=== PATIENT | male | born 1980 | race Caucasian/White ===

== ENCOUNTER → 2022-06-30 10:24 | Outpatient (CLI) | payer OTHER, SELFPAY ==
--- NOTE | ~2022-06-30 | US_ITS ---
EXAMINATION: US soft tissue LE DATE: 06/30/2022 11:00 INDICATION: Localized swelling, mass and lump, left lower limb . TECHNIQUE: Grayscale and Doppler ultrasound images of the were obtained. COMPARISON: None. FINDINGS: There are the posterior left knee was interrogated sonographically, revealing an ovoid 2 x 0.4 x 1.4 cm subcutaneous masslike area with similar echogenicity to subcutaneous fat, and no detecta ble vascularity. IMPRESSION: Subcutaneous fat echogenicity mass in the area of clinical concern, may represent a lipoma or normal fascicle of fat. Recommend continued clinical follow-up, with additional evaluation if there is rapid growth or associated pain. Reviewed, dictated and finalized at location [facility] IMPRESSION: Subcutaneous fat echogenicity mass in the area of clinical concern, may represe nt a lipoma or normal fascicle of fat. Recommend continued clinical follow-up, with additional evaluation if there is rapid growth or associated pain.
== END ==
PROVIDERS: PCP Family Medicine; Visit Provider Surgery
DX: R22.42 Localized swelling, mass and lump, left lower limb (principal)
CPT/HCPCS: 76882

== ENCOUNTER 2022-07-15 01:00 | Day surgery (SDC) | payer OTHER, SELFPAY ==
[2022-07-01 15:56] VITALS: BMI 24.9
--- NOTE | 2022-07-01 16:02 | SUR.PREOP ---
Report to the Outpatient Waiting Room, entrance under the green pavilion located off [facility], at time 0630 on date 07/15/22. Planned Procedure Time: __0830_. Time changes happen often and if your time is changed the preop area will call you the afternoon before. - You and your visitor will be asked to self-screen and do not enter if you have any COVID symptoms. - Only one visitor is requested with a max of two and NO children visitors are allowed at this time. - The patient visitor may be requested to leave or wait in car when not with patient due to distancing restrictions. - A mask is optional within the hospital at this time. Patients may have clear liquids (water, carbonated beverages, clear teas, apple juice) until 3 hours prior to surgery with a maximum of 20 ounces. - No food from midnight until time of surgery 20 OUNCES BEFORE 0530 - Infants may have breast milk until 4 hours before surgery, formula 6 hours prior to surgery. - Children will be allowed to drink immediately following surgery. If applicable, please bring a bottle or sippy cup to assist with drinking. Juice, water, soda, and popsicles are readily available. For infants on formula, please bring formula the day of surgery. Pacifiers are allowed. Take the following medications with a SIP of water the morning of surgery: ____NA___ DO NOT STOP ANY OF YOUR OTHER PRESCRIPTION MEDICATIONS PRIOR TO SURGERY ?EXCEPT THE FOLLOWING Medications to discontinue per physician NA Date to take last dose Please no make-up, nail greek, hairspray, perfume, deodorant, or body powder the day of surgery. No jewelry (including any body piercings) or valuables the day of surgery, leave them at home. Please take a shower or bath the night before, or the morning of, surgery with an antibacterial soap. Wear comfortable, loose fitting clothing. Children are encouraged to wear pajamas. - Jewelry must be removed prior to entering the operating room. Rings and piercings that are not removed may be cut off. - The hospital will not accept responsibility for valuables. - Please leave all valuables, including medications, at home the day of surgery. If you are going home after surgery, a licensed regional intermodal truck driver must drive you home. - NO public transportation without another adult if you receive anesthesia. - We recommend that an adult stay with you for 24 hours following discharge. - We also recommend that you do not drive, make important decision, drink alcoholic beverages, or take any drugs that were not prescribed by your health care provider for at least 24 hours after your discharge time. For Pediatric surgeries, we recommend two adults accompany the child home. Follow any additional instructions given to you from your surgeon. If you or anyone in your household have experienced Covid symptoms in the past week, please notify your surgeon or the nurse liaison at the phone number below for possible testing. Telephone instructions given to ___PATIENT___and asked if any additional questions and then verbalized understanding. Patient advised to call surgeon office or pre surgery nurse liaison [phone] if any additional questions.
[2022-07-15 06:40] VITALS: BP 126/82; PULSE 75; RESP 18; TEMP 36.4; O2SAT 99
[2022-07-15] MEDS: LACTATED RINGERS 1,000 ML 30 ML IV CONT (06:59)
--- NOTE | 2022-07-15 07:19 | WPDANESEPPF ---
Anes - Initial Pre Proc Eval Procedure: Operation Date: 07/15/22 08:30 Proposed Procedures p Excision of Subcutaneous Mass Left Posterior Thigh - Roman Miller MD Date/Time: 07/15/22 07:19 Surgeon: Roman Miller MD Pre Op Diagnosis: subcutaneous mass left mass Patient Data Age: 41 Gender: M Height: 1.78 m Weight: 76.2 kg Last Vital Signs Temp 36.4 C 07/15/22 06:40 Pulse 75 07/15/22 06:40 Resp 18 07/15/22 06:40 BP 126/82 07/15/22 06:40 Pulse Ox 99 07/15/22 06:40 O2 Del Method Room Air 07/15/22 06:40 Allergies Allergy/AdvReac Type Severity Reaction Status Date / Time No Known Allergies Allergy Verified 07/15/22 06:41 Home Medications Medication Instructions Recorded Confirmed Type triamcinolone acetonide 0.1 % 1 applic topical BID #453.6 grams 01/09/22 07/15/22 Rx topical cream Patient hx anesthesia problems: none Family hx anesthesia problems: none Results Review: All pre-operative results and documents have been reviewed as part of the pre-operative evaluation. [facility] Past Medical History Medical History Tobacco chew use Surgical History Surgical History (Updated 07/15/22 @ 07:20 by Nixon Ardon MD) Hx of retained foreign body fully removed shard of glass removed from right wrist S/P wisdom tooth extraction Family History Family History Father Hyperlipidemia Heart disease Social History Social History Smoking status: Current every day smoker Smokeless tobacco user: chewing tobacco Alcohol intake: current Drinks per week: 7 Alcohol use details: occasionally Substance use: never Substance use type: does not use Lack of Transportation: No Lack of Food: Never True Current Housing: I Have Housing Concerned About Future Housing: No Difficulty Paying Gas/Electric Bills: No Difficulty Paying for Meds: No Currently Unemployed: No Education: Trade/Vocational Certificate Difficulty w/ Childcare or Family Care: No Living arrangements: with family Occupation/Education: occupation Additional occupation/education comments: [employer] Gender identity (if verbalized by the patient): Male Sexual Orientation (if Verbalized by the Patient): Straight or Heterosexual Agree to blood products: Yes Anes - Eval Final PreProcedure Day of Procedure 07/15/22 07:19 Patient weight: normal Heart: regular rate and rhythm Lungs: clear to auscultation Airway: Mallampati scale class II Neurological: alert and oriented Last oral intake: >/= 8 hours ASA classification: II Emergent: no Anesthetic plan: proceed Anesthesia type and monitoring: general GIVS and standard monitoring Results Review: All pre-operative results and documents have been reviewed as part of the pre-operative evaluation. Informed Consent: The patient's anesthetic plan and its attendant risks and benefits were discussed with the patient/family/POA. Questions were solicited and answers provided to the satisfaction of the patient/family/POA.
--- NOTE | 2022-07-15 08:21 | WPDHPUPDATE1 ---
History and Physical Update Update Date/Time: 07/15/22 08:21 History and Physical has been reviewed, including an updated exam of the patient. There are NO changes in the patient's condition. Risks, benefits, and alternatives have been discussed and questions answered. Patient agrees to proceed with procedure.
--- NOTE | 2022-07-15 08:34 | SUR.PREOP ---
patient notified that surgery is delayed approximately 15 minutes
[2022-07-15] MEDS: BUPIVACAINE/EPINEPHRINE 0.25% 50 ML VIAL 20 ML INFILTRATE (09:22)
[2022-07-15 09:40] VITALS: BP 101/63; PULSE 74; RESP 16; O2SAT 95
--- NOTE | 2022-07-15 09:46 | P.OP_ITS ---
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 He has a subcutaneous mass on the back of his left thigh which, when wearing his knee and henning protectors, rubs and is painful. Exam as well as ultrasound showed this to be a lipoma. He is taken to surgery now for excision as an outpatient. Findings Superficial multilobulated subcutaneous lipoma, 5 cm by 2 cm Description of Procedure Patient was checked in the preoperative holding area. The proposed incision was marked on the skin. Patient was then taken to surgery and sedation was introduced. He was in a right lateral decubitus position. Prep and drape was carried out. Local anesthesia was infiltrated over the area of the anticipated incision as well as around the subcutaneous. Incision was made and the lipoma was multilobulated and was located just under the skin. Using a combination of blunt and sharp dissection, the lipoma was excised from the skin and the subcutaneous. He had very little subcutaneous fat and some of the lipoma was actually on the muscular fascia of the thigh. Lesion was excised in 1 piece. The wound was made hemostatic with the cautery. The lipoma was passed off to pathology in formalin. The wound was closed with subcuticular interrupted 4-0 Vicryl skin stitches. The wound was dressed with Exofin surgical adhesive. Patient was awakened and taken to recovery in good condition. Sponge and needle counts were correct x2. Estimated Blood Loss -5 Drains No Packing No Pathology Yes (Subcutaneous mass left posterior thigh) Complications No immediate complications Condition Stable Disposition Same day [facility] Billing Surgery - Charge Forward: Surgery Billing (Excision 5 cm subcutaneous mass left posterior thigh)
[2022-07-15 10:10] VITALS: BP 98/66; PULSE 55; RESP 16; O2SAT 99
[2022-07-15 10:30] VITALS: BP 99/67; PULSE 62; RESP 16; O2SAT 100
[2022-07-15 10:45] VITALS: BP 112/79; PULSE 52; RESP 14
== END 2022-07-15 10:56 | disposition home or self-care (01) ==
PROVIDERS: PCP Family Medicine; Visit Provider Surgery
PROC: (CPT 27337; principal; 2022-07-15 08:30)
DX: D17.24 Benign lipomatous neoplasm of skin and subcutaneous tissue of left leg (principal); F17.220 Nicotine dependence, chewing tobacco, uncomplicated
CPT/HCPCS: 27337; 88304; J2250; J2704; J3010; J7120

== ENCOUNTER 2024-11-06 21:16 | Emergency (ER) | payer BC, SELFPAY ==
--- OUTSIDE RECORDS SUMMARY | 2024-11-06 21:18 | XMS_ITS | Clinical Summary ---
Author Organization [facility] Address [address] [place] [id number] Care Team Providers Care Screen Printing Machine Operator Helper Name Role Phone Leighton Meek MD Primary Care Provider [phone] Allergies No known active allergies Active Problems Problem Noted Date Diagnosed Date Current smoker 07/31/2011 Immunizations Immunization Administration Dates Next Due Tdap 12/15/2023 Social History Tobacco Use Types Packs/Day Years Used Date Smoking Tobacco: Never Assessed Personal Safety Answer Date Recorded Have you ever been in or are you currently in a harmful physical or emotional relationship or is someone making you feel afraid or unsafe? 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 Gender Identity Not on file Sexual Orientation Not on file Obstetrics History Last Filed Vital Signs Vital Sign Reading Time Taken Comments Blood Pressure 152/104 12/15/2023 9:30 AM CDT Pulse 87 12/15/2023 9:30 AM CDT Temperature 36.8 C (98.2 F) 12/15/2023 9:30 AM CDT Respiratory Rate 18 12/15/2023 9:30 AM CDT Oxygen Saturation 99% 12/15/2023 9:30 AM CDT Inhaled Oxygen Concentration - - Weight 79.6 kg (175 lb 7.8 oz) 12/15/2023 9:30 A M CDT Height 177.8 cm (5' 10) 12/15/2023 9:30 AM CDT Body Mass Index 25.18 12/15/2023 9:30 AM CDT Plan of Treatment Health Maintenance Due Date Last Done Comments Depression Screening 1980 Hepatitis C Screening 1980 Varicella Vaccines (1 of 2 - 13+ 2-dose series) 1993 Hepatitis B Screening 1998 Regular Well Visit/Exam 18-64 1998 Influenza Vaccine (#1) 2024 DTaP/Tdap/Td Vaccine (3 - Td or Tdap) 12/14/2033 12/15/2023, 05/21/2015 HPV Vaccines Aged Out No longer eligi ble based on patient's age to complete this topic Pneumococcal vaccine <65 Aged Out No longer eligible based on patient's age to complete this topic Insurance [facility] Care Teams Screen Printing Machine Operator Helper Relationship Specialty Start Date End Date Leighton Meek MD [address] [place] [address] [address] [place] [id number] PCP - General Family Medicine 12/15/23
--- OUTSIDE RECORDS SUMMARY | 2024-11-06 21:18 | XMS_ITS | Referral Summary ---
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
--- OUTSIDE RECORDS SUMMARY | 2024-11-06 21:18 | XMS_ITS | Clinical Summary ---
Author Organization [facility] Address [address] [place] [address] Care Team Providers Care Rfp Writer Name Role Phone Leighton Meek MD Primary Care Provider [phone] Source Comments [facility],non-owned Affiliates and Associated Physician Practices is amultiple site organization consisting of ambulatory clinics and hospital sitesin [place], [place], [place] and [place]. This disclosure is being madepursuant to the Care Everywhere program and may not contain all information available regarding this patient. Last updated 18.[employer] Allergies No known active allergies Medications * Be aware that medications may not be up to date on this document. Alwaysverify current medications with the patient. 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:38 PM FORM SETTER/DRIVER Gender Identity Not on file Sexual Orientation Not on file Last Filed Vital Signs Vital Sign Reading Time Taken Comments Blood Pressure 110/70 04/22/2017 3:31 PM FORM SETTER/DRIVER Pulse 80 04/22/2017 3:31 PM FORM SETTER/DRIVER Temperature 36.9 C (98.4 F) 04/22/2017 3:31 PM FORM SETTER/DRIVER Respiratory Rate 20 04/22/2017 3:31 PM FORM SETTER/DRIVER Oxygen Saturation - - Inhaled Oxygen Concentration - - Weight 79.4 kg (175 lb) 04/22/2017 3:31 PM FORM SETTER/DRIVER Height - - Body Mass Index - - Plan of Treatment Health Maintenance Due Date Last Done Comments LIPID TESTING 1980 HIV SCREENING 10/08/1995 HEPATITIS C SCREENING 10/03/1998 DTAP/TDAP/TD VACCINES (1 - Tdap) 10/08/1999 HEPATITIS B VACCINE (1 of 3 - 19+ 3-dose series) 10/08/1999 HPV VACCINE (1 - 3-dose SCDM series) 10/08/2007 COVID-19 VACCINE (1 - 2023-2 5 season) 2023 DEPRESSION SCREENING 04/26/2024 INFLUENZA VACCINE (#1) 2024 ZOSTER VACCINE (1 of 2) 2030 HIB VACCINE Aged Out No longer eligi ble based on patient's age to complete this topic MENINGOCOCCAL (Group B) VACC INE SHARED DECISION-MAKING Aged Out No longer eligibl e based on patient's age to complete this topic MENINGOCOCCAL GROUPS A/C/Y/W VACCINE Aged Out No longer eligible b ased on patient's age to complete this topic PNEUMOCOCCAL VACCINE Aged Out No long er eligible based on patient's age to complete this topic Insurance [employer] Care Teams Rfp Writer Relationship Specialty Start Date End Date Leighton Meek MD [address] [place] [id number] PCP - General Family Medicine 04/22/17
[2024-11-06 21:19] VITALS: BP 136/103; PULSE 111; RESP 22; TEMP 36.7; O2SAT 96
--- NOTE | 2024-11-06 21:47 | ED.WOUNDLAC ---
HPI - Wound/Laceration General Chief Complaint: Wound/Laceration <Giana Merino PA-C - Last Filed: 11/06/24 23:08> Stated Complaint: Laceration left chest-board fell on him <Giana Merino PA-C - Last Filed: 11/06/24 23:08> Time Seen by Provider: 11/06/24 21:41 <Giana Merino PA-C - Last Filed: 11/06/24 23:08> History of Present Illness HPI narrative: 44-year-old male presents to the emergency department for a laceration to the left chest wall/axilla that occurred prior to arrival. Patient states he was tearing down a building when he pulled 2 x 4 that he believed had a nail on it and caused a laceration. Bleeding is controlled. Last Tdap is unknown. Denies other injuries. <Giana Merino PA-C - Last Filed: 11/06/24 23:08> Related Data Allergies/Adverse Reactions: Allergies Allergy/AdvReac Type Severity Reaction Status Date / Time No Known Allergies Allergy Verified 11/06/24 21:16 <Giana Merino PA-C - Last Filed: 11/06/24 23:08> Review of Systems Review of Systems: All systems reviewed & are unremarkable except as noted in HPI and below <Giana Merino PA-C - Last Filed: 11/06/24 23:08> [facility] Past Medical History Medical History: Medical History Tobacco chew use <Giana Merino PA-C - Last Filed: 11/06/24 23:08> Surgical History Surgical History: Surgical History H/O excision of mass 07/15/22 Excision 5 cm subcutaneous mass left posterior thigh S/P wisdom tooth extraction Hx of retained foreign body fully removed shard of glass removed from right wrist <Giana Merino PA-C - Last Filed: 11/06/24 23:08> Family History Family History: Family History Father Hyperlipidemia Heart disease <Giana Merino PA-C - Last Filed: 11/06/24 23:08> Social History Social History: Social History Smoking status: Current every day smoker Smokeless tobacco user: chewing tobacco Alcohol intake: current Drinks per week: 7 Alcohol use details: occasionally Substance use: never Substance use type: does not use Lack of Transportation: No Lack of Food: Never True Current Housing: I Have Housing Concerned About Future Housing: No Difficulty Paying Gas/Electric Bills: No Difficulty Paying for Meds: No Currently Unemployed: No Education: Trade/Vocational Certificate Difficulty w/ Childcare or Family Care: No Living arrangements: with family Occupation/Education: occupation Additional occupation/education comments: [employer] Gender identity (if verbalized by the patient): Male Sexual Orientation (if Verbalized by the Patient): Straight or Heterosexual Agree to blood products: Yes <Giana Merino PA-C - Last Filed: 11/06/24 23:08> Exam Narrative: GENERAL: Well-appearing, well-nourished, and in no acute distress. HEAD: Normocephalic, atraumatic. EYES: EOMI. ENT: Nares clear, no rhinorrhea or epistaxis. Mucous membranes moist. NECK: Supple. CHEST: Clear to auscultation. No respiratory distress. HEART: Regular rate and rhythm. No murmur heard. Normal peripheral pulses. EXTREMITIES: Normal range of motion. No edema. SKIN: 7 cm laceration to the left chest wall/anterior aspect of the axilla with exposed subcutaneous fat. No muscle or fascial involvement. Bleeding is controlled. No other deep structures or foreign bodies visualized. Patient has full range of motion of left shoulder. Radial, median, ulnar and axillary nerves intact. Radial pulses 2+. NEURO: No focal deficits. Alert and oriented x3 <Giana Merino PA-C - Last Filed: 11/06/24 23:08> Course WINDOWS SUPPORT ENGINEER/PA Physician Supervision For this patient encounter, I reviewed the WINDOWS SUPPORT ENGINEER or PA documentation, treatment plan, and medical decision making and had [id number] time with this patient. I performed all aspects of the MDM as documented. <Tianna Jones MD - Last Filed: 11/07/24 02:42> Vital Signs Vital signs: Vital Signs Temperature 98.0 F 11/06/24 21:19 Pulse Rate 111 H 11/06/24 21:19 Respiratory Rate 22 H 11/06/24 21:19 Blood Pressure 136/103 H 11/06/24 21:19 Pulse Oximetry 96 11/06/24 21:19 Oxygen Delivery Room Air 11/06/24 21:19 Temperature 98.0 F 11/06/24 21:19 Pulse Rate 111 H 11/06/24 21:19 Respiratory Rate 22 H 11/06/24 21:19 Blood Pressure 136/103 H 11/06/24 21:19 Pulse Oximetry 96 11/06/24 21:19 Oxygen Delivery Room Air 11/06/24 21:19 <Giana Merino PA-C - Last Filed: 11/06/24 23:08> Vital Signs Temperature 98.0 F 11/06/24 21:19 Pulse Rate 111 H 11/06/24 21:19 Respiratory Rate 22 H 11/06/24 21:19 Blood Pressure 136/103 H 11/06/24 21:19 Pulse Oximetry 96 11/06/24 21:19 Oxygen Delivery Room Air 11/06/24 21:19 Temperature 98.0 F 11/06/24 21:19 Pulse Rate 111 H 11/06/24 21:19 Respiratory Rate 22 H 11/06/24 21:19 Blood Pressure 136/103 H 11/06/24 21:19 Pulse Oximetry 96 11/06/24 21:19 Oxygen Delivery Room Air 11/06/24 21:19 <Tianna Jones MD - Last Filed: 11/07/24 02:42> Procedures Laceration Laceration 1: Date: 11/06/24 <Giana Merino PA-C - Last Filed: 11/06/24 23:08> Time: 23:05 <Giana Merino PA-C - Last Filed: 11/06/24 23:08> Site: chest <Giana Merino PA-C - Last Filed: 11/06/24 23:08> Side (If applicable): left <GUERO Durham Last Filed: 11/06/24 23:08> Size (cm): 7 <GUERO Durham Last Filed: 11/06/24 23:08> Description: linear <GUERO Durham Last Filed: 11/06/24 23:08> Depth: simple, single layer <GUERO Durham Last Filed: 11/06/24 23:08> Local Anesthetic: lidocaine 1% and with epi <GUERO Durham Last Filed: 11/06/24 23:08> Amount of anesthesia used (mL): 10 <GUERO Durham Last Filed: 11/06/24 23:08> Pre-repair: wound explored, irrigated and irrigated extensively <GUERO Durham Last Filed: 11/06/24 23:08> ====== Skin Level ======: Skin layer closed with: nylon <GUERO Durham Last Filed: 11/06/24 23:08> Size (cm): 4-0 <GUERO Durham Last Filed: 11/06/24 23:08> Number of sutures: 12 <GUERO Durham Last Filed: 11/06/24 23:08> Technique: simple, interrupted <GUERO Durham Last Filed: 11/06/24 23:08> ====== Subcutaneous Layer ======: Subcutaneous layer closed with: vicryl <GUERO Durham Last Filed: 11/06/24 23:08> Size: 4-0 <GUERO Durham Last Filed: 11/06/24 23:08> Number of sutures: 4 <GUERO Durham Last Filed: 11/06/24 23:08> Technique: simple, interrupted <GUERO Durham Last Filed: 11/06/24 23:08> ====== Muscle Layer ======: ====== Tendon Layer ======: MDM - Wound/Laceration MDM Narrative Medical decision making narrative: 44-year-old male presents emergency department for laceration to his left chest wall/axilla that occurred prior to arrival. See HPI for further history. Triage vitals with tachycardia 111 and tachypnea 22, suspect this is due to pain. Exam is notable for 7 cm laceration to the anterior aspect of the left axilla with bleeding controlled. There is exposed subcutaneous tissue but no fascia or muscular involvement. Bleeding is controlled. No other deep structures or foreign bodies are visualized. Laceration irrigated extensively with normal saline and closed as noted above. Tdap updated. Patient was started on Keflex prophylactically advised to have sutures removed in 7 days. Discussed wound care and strict ED return precautions. He is agreeable with the plan verbalized understanding. Discharged in stable condition. <Giana Merino PA-C - Last Filed: 11/06/24 23:08> Discharge Plan Discharge Clinical Impression: Laceration <GUERO Durham Last Filed: 11/06/24 23:08> Patient Disposition: Home <GUERO Durham Last Filed: 11/06/24 23:08> Condition: Stable <GUERO Durham Last Filed: 11/06/24 23:08> Instructions: Antibiotic Form, Care For Your Stitches (ED), Laceration (ED) <GUERO Durham Last Filed: 11/06/24 23:08> Additional Instructions: Please have your stitches removed in 7 days. Take the antibiotics as directed. Keep your wound clean and dry. Return to the emergency department if you develop surrounding redness, drainage, fever or other concerning symptoms. <Giana Merino PA-C - Last Filed: 11/06/24 23:08> Patient Language: Croatian <GUERO Durham Last Filed: 11/06/24 23:08> Prescriptions: New cephalexin 500 mg capsule 500 mg PO Q8H 7 Days Qty: 21 0RF No Action terbinafine HCl 250 mg tablet 250 mg PO DAILY Qty: 90 0RF triamcinolone acetonide 0.1 % cream 1 applic TOPICAL BID Qty: 453.6 1RF <Giana Merino PA-C - Last Filed: 11/06/24 23:08> Follow-up/Referrals: Leighton Meek MD [Primary Care Provider] - <Giana Merino PA-C - Last Filed: 11/06/24 23:08>
--- OUTSIDE RECORDS SUMMARY | 2024-11-06 21:56 | XMS_ITS | Clinical Summary ---
Author Organization [facility] Address [address] [facility] [place] [address] Care Team Providers Care Supply Teacher Name Role Phone Leighton Meek MD Primary Care Provider [phone] Source Comments [facility],non-owned Affiliates and Associated Physician Practices is amultiple site organization consisting of ambulatory clinics and hospital sitesin [place], [place], [place] and [place]. This disclosure is being madepursuant to the Care Everywhere program and may not contain all information available regarding this patient. 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 Gender Identity Not on file Sexual Orientation Not on file Last Filed Vital Signs Vital Sign Reading Time Taken Comments Blood Pressure 110/70 04/22/2017 3:31 PM VALIDATION SOFTWARE FACILITATOR Pulse 80 04/22/2017 3:31 PM VALIDATION SOFTWARE FACILITATOR Temperature 36.9 C (98.4 F) 04/22/2017 3:31 PM VALIDATION SOFTWARE FACILITATOR Respiratory Rate 20 04/22/2017 3:31 PM VALIDATION SOFTWARE FACILITATOR Oxygen Saturation - - Inhaled Oxygen Concentration - - Weight 79.4 kg (175 lb) 04/22/2017 3:31 PM VALIDATION SOFTWARE FACILITATOR Height - - Body Mass Index - [...] age to complete this topic Insurance [facility] Address: [facility] [id number] [place] [address] Care Teams Supply Teacher Relationship Specialty Start Date End Date Leighton Meek MD [address] [place] [id number] PCP - General Family Medicine 04/22/17
--- OUTSIDE RECORDS SUMMARY | 2024-11-06 21:56 | XMS_ITS | Clinical Summary ---
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
--- OUTSIDE RECORDS SUMMARY | 2024-11-06 21:56 | XMS_ITS | Referral Summary ---
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
[2024-11-06] MEDS: HYDROcodone/acetaminophen (*CRX) 5-325 MG TABLET 1 TAB PO (22:16)
[2024-11-06] MEDS: TETANUS,DIPHTHERIA,AC PERTUSSIS ADULT (0.5 ML) BOOSTRIX IM (22:18)
[2024-11-06] MEDS: CEPHALEXIN 500 MG CAPSULE PO (23:33)
== END 2024-11-06 23:35 | disposition home or self-care (01) ==
PROVIDERS: Emergency Provider Physician Assistant; PCP Family Medicine
DX: S21.112A Laceration without foreign body of left front wall of thorax without penetration into thoracic cavity, initial encounter (principal); Z23 Encounter for immunization; F17.220 Nicotine dependence, chewing tobacco, uncomplicated; W45.0XXA Nail entering through skin, initial encounter
CPT/HCPCS: 12031; 32551; 90471; 90715; 99283; A9270